=== PATIENT | female | born 1985 | race Caucasian/White ===

== ENCOUNTER → 2016-04-10 | Outpatient (CLI) | payer OTHER ==
[~2016-04-10] MED LIST: PERC5TAB6 PO; PRENTAB45 PO
[2016-04-10 18:50] LABS: MEAN CORPUSCULAR HEMOGLOBIN 32.2 pg (27.0-33.0); MEAN CORPUSCULAR HGB CONC 33.4 g/dl (32.0-36.5); MEAN CORPUSCULAR VOLUME 96.4 fl (80.0-96.0); RED CELL DISTRIBUTION WIDTH 12.9 % (11.5-14.5); WHITE BLOOD COUNT 9.7 K/mm3 (4.0-10.0)
[2016-04-10 19:08] LABS: ALBUMIN 3.6 GM/DL (3.2-5.2); ALBUMIN/GLOBULIN RATIO 1.13 (1.00-1.93); ALKALINE PHOSPHATASE 73 U/L (45-117); ALT/SGPT 16 U/L (12-78); ANION GAP 8 MEQ/L (8-16); AST/SGOT 13 U/L (15-37); BILIRUBIN,TOTAL 0.2 MG/DL (0.2-1.0); BLOOD UREA NITROGEN 8 MG/DL (7-18); CARBON DIOXIDE LEVEL 26 MEQ/L (21-32); CHLORIDE LEVEL 106 MEQ/L (98-107); CREATININE FOR GFR 0.88 MG/DL (0.55-1.02); GLOMERULAR FILTRATION RATE > 60.0 (>60); GLUCOSE, FASTING 132 MG/DL (70-105); HCG, SERUM QUANTITATIVE 4748 MIU/ML; POTASSIUM SERUM 4.4 MEQ/L (3.5-5.1); SODIUM LEVEL 140 MEQ/L (136-145); TOTAL PROTEIN 6.8 GM/DL (6.4-8.2)
== END ==
LOC: M SMT 11:12
PROVIDERS: ATTEND Obstetrics & Gynecology
DX: N91.2 Amenorrhea, unspecified (principal)
CPT/HCPCS: 36415; 80053; 81001; 84702; 85027; 86850; 86901; J2790

== ENCOUNTER → 2016-04-12 | Outpatient (CLI) | payer OTHER | LOC: M LAB 11:57 | PROVIDERS: ATTEND Obstetrics & Gynecology | DX: N91.2 Amenorrhea, unspecified (principal) ==

== ENCOUNTER → 2016-04-14 | Outpatient (CLI) | payer OTHER ==
[2016-04-14 18:08] LABS: BASO # 0.1 K/mm3 (0.0-0.2); BASO % 1.1 % (0.0-1.0); EOS # 0.1 K/mm3 (0.0-0.50); EOS % 1.1 % (0.0-3.0); LARGE UNSTAINED CELL # 0.1 K/mm3 (0.0-0.4); LARGE UNSTAINED CELL % 1.1 % (0.0-4.0); LYMPH # 1.7 K/mm3 (1.5-4.5); LYMPH % 18.5 % (24.0-44.0); MEAN CORPUSCULAR HEMOGLOBIN 32.1 pg (27.0-33.0); MEAN CORPUSCULAR HGB CONC 33.2 g/dl (32.0-36.5); MEAN CORPUSCULAR VOLUME 96.8 fl (80.0-96.0); MONO # 0.6 K/mm3 (0.0-0.8); MONO % 6.7 % (0.0-5.0); NEUTROPHILS # 6.3 K/mm3 (1.8-7.7); NEUTROPHILS % 71.4 % (36.0-66.0); PLATELET COUNT, AUTOMATED 308 k/mm3 (150-450); RED CELL DISTRIBUTION WIDTH 12.5 % (11.5-14.5); WHITE BLOOD COUNT 8.9 K/mm3 (4.0-10.0)
[2016-04-17 11:13] LABS: HBsAg Prenatal NEGATIVE (NEGATIVE)
[2016-04-17 12:51] LABS: CONTROL LINE INT CTR LINE PRESENT; HIV SCRN NEGATIVE (NEGATIVE); HIV SCRN1 NEGATIVE (NEGATIVE)
== END ==
LOC: M SMT 11:21
PROVIDERS: ATTEND Obstetrics & Gynecology
DX: Z34.81 Encounter for supervision of other normal pregnancy, first trimester (principal)

== ENCOUNTER → 2016-06-30 | Outpatient (CLI) | payer OTHER | LOC: M SMT 11:18 | PROVIDERS: ATTEND Obstetrics & Gynecology | DX: Z31.438 Encounter for other genetic testing of female for procreative management (principal) ==

== ENCOUNTER → 2016-07-19 | Outpatient (CLI) | payer OTHER | LOC: M SMT 11:18 | PROVIDERS: ATTEND Obstetrics & Gynecology | DX: Z34.82 Encounter for supervision of other normal pregnancy, second trimester (principal) ==

== ENCOUNTER → 2016-08-02 | Outpatient (CLI) | payer OTHER ==
--- NOTE | 2016-08-03 05:32 | REP ---
Clinical: Limited obstetrical ultrasound. Cervical length. Technique: Transabdominal obstetrical ultrasound with color Doppler evaluation. Findings: Ultrasound examination demonstrates a single live intrauterine in transverse lie. Gestational age by first ultrasound 21 weeks 3 days with estimated date of delivery 12/10/2016. heart rate equals 147 beats per minute. Placenta is identified posteriorly and grade zero without evidence for placenta previa or abruption. Cervix measures 3.7 cm in length on Valsalva and appears closed. No funneling or endocervical fluid is appreciated. Impression: Cervix measures 3.7 cm length and appears closed. Signed by Ilan Andres MD 08/03/2016 05:23 A
== END ==
LOC: M SMT 10:53
PROVIDERS: ATTEND Advanced Practice Midwife
DX: Z34.82 Encounter for supervision of other normal pregnancy, second trimester (principal)

== ENCOUNTER → 2016-09-13 | Outpatient (CLI) | payer OTHER | LOC: M SMT 09:20 | PROVIDERS: ATTEND Advanced Practice Midwife | DX: Z34.83 Encounter for supervision of other normal pregnancy, third trimester (principal) ==

== ENCOUNTER → 2016-09-22 | Outpatient (CLI) | payer OTHER ==
[~2016-09-22] MED LIST changes: +ACET-683 PO; +IBUP80TA PO; +PERC5TAB12 PO; -PERC5TAB6 PO
[2016-09-22 13:13] LABS: ADD MANUAL DIFFER YES; MEAN CORPUSCULAR HEMOGLOBIN 33.3 pg (27.0-33.0); MEAN CORPUSCULAR HGB CONC 34.9 g/dl (32.0-36.5); MEAN CORPUSCULAR VOLUME 95.4 fl (80.0-96.0); PLATELET COUNT, AUTOMATED 282 k/mm3 (150-450); RED CELL DISTRIBUTION WIDTH 13.3 % (11.5-14.5); WHITE BLOOD COUNT 8.6 K/mm3 (4.0-10.0)
== END ==
LOC: M SMT 08:58
PROVIDERS: ATTEND Advanced Practice Midwife
DX: Z34.83 Encounter for supervision of other normal pregnancy, third trimester (principal)

== ENCOUNTER → 2016-11-10 | Outpatient (REF) | payer OTHER | LOC: M LAB REF 12:59 | PROVIDERS: ATTEND Advanced Practice Midwife | DX: Z34.83 Encounter for supervision of other normal pregnancy, third trimester (principal) ==

== ENCOUNTER 2016-12-03 06:07 | Inpatient (IN) | payer OTHER ==
[~2016-12-03] VITALS: Ht 162.6 cm; Wt 76.0 kg
[~2016-12-03 06:07] MED LIST changes: -ACET-683 PO; -IBUP80TA PO
--- NOTE | 2016-12-03 06:59 | HPE ---
DATE OF ADMISSION: 12/03/2016 HISTORY: 31-year-old, (G) 4, para (P) 1-0-2-1 female, at 38-6/7 weeks gestation by last menstrual period (LMP) consistent with 7 week ultrasound, estimated date of confinement (EDC) 12/11/2016, presents with spontaneous loss of fluid per vagina at 5:30 in the morning admission. She continued to leak fluid. Her contractions increased in intensity shortly thereafter, and she presented to the hospital. COURSE: The patient initiated care at 8 weeks gestation on 05/04/2016. Her first trimester blood pressure was 130/74, weight 165 pounds. Her course is unremarkable. MEDICAL HISTORY: Cervical dysplasia. SURGICAL HISTORY: 1. Loop electrosurgical excision procedure (LEEP) 2007 2. Laparoscopic salpingectomy for ruptured ectopic 2013. 3. Hemangioma removed from right arm. ALLERGIES: None. SOCIAL HISTORY: The patient is . She denies cigarettes, alcohol or drug use. FAMILY HISTORY: Noncontributory. PHYSICAL EXAMINATION: Blood pressure 124/74. Pulse 84. She appears uncomfortable. Head and neck exam is normal. Lungs clear. Heart regular rate and rhythm. Abdomen nontender, gravid. heart tones category 1. Contractions every 4 minutes. Sterile vaginal exam: She is grossly ruptured with clear fluid noted. Cervix is 5 cm, 100% effaced, -1 station, vertex. Extremities nontender. LABORATORIES: Blood type O negative. Rubella immune. RPR nonreactive. Hepatitis B and C negative. HIV negative. GBS negative. ASSESSMENT: 31-year-old, 4, para 1 female, at 38-6/7 weeks gestation who presents with spontaneous rupture of membranes, in active labor. The patient is admitted on 12/03/2016.
[2016-12-03 07:25] LABS: MEAN CORPUSCULAR HEMOGLOBIN 33.2 pg (27.0-33.0); MEAN CORPUSCULAR HGB CONC 35.6 g/dl (32.0-36.5); MEAN CORPUSCULAR VOLUME 93.4 fl (80.0-96.0); RED CELL DISTRIBUTION WIDTH 12.8 % (11.5-14.5)
[2016-12-03] MEDS ORDERED: FENTANYL 2MCG/ML ROPIVACAINE 0.2% IN 0.9% NACL 200ML IVBAG As Ordered ONE (07:46)
[2016-12-03] MEDS ORDERED: OXYTOCIN 30 UNITS IN 0.9% NaCl 500ML IV BAG (J2590) As Ordered ONE (08:35)
[2016-12-03] MEDS: PRENATAL VITAMINS CHEWABLE TABLET PO SCH (09:00)
[2016-12-03] MEDS ORDERED: OXYTOCIN DRIP 30 UNITS in APPROPRIATE DILUENT 1 EA IV SCH (09:42)
[2016-12-03] MEDS ORDERED: MOM 30ML SUSPENSION UDC PO PRN (09:45)
[2016-12-03] MEDS ORDERED: RHOGAM 300 MCG (1500 IU) INJ (J2790) IM SCH (09:45)
[2016-12-03] MEDS ORDERED: METHYLERGONOVINE MALEATE 0.2 MG TAB PO PRN (09:45)
[2016-12-03] MEDS ORDERED: DIBUCAINE 1% OINTMENT 30GM TOP PRN (09:45)
[2016-12-03] MEDS ORDERED: ANUSOL HC CREAM 30GM TOP PRN (09:45)
[2016-12-03] MEDS ORDERED: MEASLES,MUMPS,RUBELLA VACCINE INJ (MMR-II) (90707) SC SCH (09:45)
[2016-12-03] MEDS ORDERED: DOCUSATE SODIUM 100 MG CAP PO PRN (09:45)
[2016-12-03] MEDS ORDERED: ACETAMINOPHEN 500 MG TAB PO PRN (09:45)
--- NOTE | 2016-12-03 10:16 | DN ---
DATE: 12/03/2016 Spontaneous active labor. Utilized epidural for labor coping. Spontaneous rupture of membranes at 0530 hours, clear fluid. Fully dilated at 0831 hours. Viable female delivered left occiput anterior (PETER) without difficulty. Compound presentation of right anterior arm at 0844 hours, spontaneous respirations with cry, transitioned on maternal abdomen. Cord doubly clamped and cut by father of the baby once pulsations ceased under my direction. scores 9 and 10. Placenta Schultze intact with three-vessel cord at 0852 hours. Marginal cord insertion noted. Fundus firmed with massage and intravenous (IV) Pitocin bolus. Estimated blood loss 100 mL. Perineum, cervix and vagina inspected. First degree laceration posterior vaginal wall repaired with 3-0 Vicryl Rapide. Abrasion noted upper left labia, not repaired, hemostatic. Sponge, sharp and instrument count correct. Infant weight 6 pounds 14 ounces, 3114 grams. Parents are naming their daughter Nneka. was attended by KATIE Dow and myself. DANETTE
[2016-12-03 13:00] VITALS: BP 123/69
[2016-12-03] MEDS ORDERED: FENTANYL/ROPIVACAINE/NACL BAG 200 ML EPIDURAL SCH (13:00)
[2016-12-03] MEDS ORDERED: REFRIGERATOR IV KEYS XX PRN (13:00)
[2016-12-03] MEDS ORDERED: ePHEDrine SULFATE 25 MG/5 ML(5MG/ML) SYRINGE IV PRN (13:00)
[2016-12-03] MEDS ORDERED: EPIDURAL COMMENT XX SCH (13:00)
[2016-12-03] MEDS ORDERED: ONDANSETRON 4MG/2ML VIAL (J2405) IV PRN (13:00)
[2016-12-03] MEDS ORDERED: diphenhydrAMINE INJ 50MG/ML VIAL (J1200) IV PRN (13:00)
[2016-12-03] MEDS ORDERED: EPIDURAL/PCA KEYS XX PRN (13:00)
[2016-12-03] MEDS ORDERED: LACTATED RINGER'S 1000 ML IV PRN (13:00)
[2016-12-03] MEDS ORDERED: NALOXONE INJ 0.4 MG/1 ML VIAL (J2310) IV PRN (13:00)
[2016-12-03] MEDS: IBUPROFEN 800 MG TAB PO PRN ×2 (14:54→21:29)
[2016-12-03 18:00] VITALS: BP 110/72
[2016-12-04 06:10] VITALS: BP 128/80
[2016-12-04] MEDS: IBUPROFEN 800 MG TAB PO PRN ×2 (06:43→13:09)
[2016-12-04] MEDS: PRENATAL VITAMINS CHEWABLE TABLET PO SCH (09:04)
[2016-12-04] MEDS ORDERED: ACET-683 PO (10:13)
[2016-12-04] MEDS ORDERED: IBUP80TA PO (10:13)
[2016-12-04 17:57] VITALS: BP 124/71
== END 2016-12-04 18:41 | disposition home or self-care (01) | DRG 775 ==
LOC: M LDO 06:07 → M LDI 06:40 → M OBS 12:55
PROVIDERS: ADMIT Specialist; ATTEND Specialist
PROC: 10E0XZZ Delivery of Products of Conception, External Approach (ICD-10-PCS; principal; 2016-12-03)
PROC: 0HQ9XZZ Repair Perineum Skin, External Approach (ICD-10-PCS; 2016-12-03)
DX: O70.0 First degree perineal laceration during delivery (principal); Z37.0 Single live birth; Z3A.38 38 weeks gestation of pregnancy